=== PATIENT | male | born 1970 | race Caucasian/White ===

== ENCOUNTER 2024-06-04 13:29 | Emergency (ER) | payer OTHER, SELFPAY ==
[2024-06-04 13:36] VITALS: BP 136/84
[2024-06-04 13:44] VITALS: BMI 30.4
[2024-06-04 13:48] LABS: Glucose - Point of Care 89 mg/dl (70-99)
--- NOTE | 2024-06-04 13:54 | CON.NEURO ---
Neuro Assessment/Plan
Assessment
Abrupt onset left arm sensory change
Differential diagnosis includes left C7 radiculopathy referred pain from cardiac discomfort
Plan
Supportive care
Consider MRI of brain
Consider MRI of cervical spine
Antiplatelet agents at this time are not warranted
Will follow as needed
Consultation
Order
Date of Consultation: 06/04/24
Requesting Provider: Emergency department provider
Reason for Consult: Stroke alert
Subjective/Objective
Subjective Data
Date of Service: June 04, 2024
Right handed.
Patient reportedly was in his usual state of health when he developed sudden onset of left arm heaviness. The patient became concerned as this symptom could represent myocardial infarction and therefore he presented to this hospital's emergency
department at which time a stroke alert was initiated. The patient has not had prior episodes similar. He is not aware of factors which are improving or worsening this problem.
No other associated symptoms.
Objective Data
Vital Signs
Temp Pulse Resp BP Pulse Ox
36.9 C 68 18 136/84 97
06/04/24 13:36 06/04/24 13:36 06/04/24 13:36 06/04/24 13:36 06/04/24 13:36
Patient Allergies
apple Allergy (Verified 06/04/24 13:35)
Tongue Swelling
CVA Assessment
Onset of Stroke Symptoms
Onset of symptoms known: Yes
Date of onset of symptoms: 06/04/24
Time of onset of symptoms: 11:30
Time pt last seen normal is known: Yes
Date last time pt seen normal: 06/04/24
Time last time pt seen normal: 11:30
NIH Stroke Score
Level of Consciousness: 0 - Alert
LOC Questions: 0-Answers both correctly
LOC Commands: 0-Performs both correctly
Best Horizontal Gaze: 0-Normal
Visual Edlcid: 0=Normal, no visual loss
Facial Palsy: 0=Normal, symmetrical
Motor - Right Arm: 0=No drift 10 seconds
Motor - Left Arm: 0=No drift 10 seconds
Motor - Right Le-No drift 5 seconds
Motor - Left Le-No drift 5 seconds
Limb Ataxia: 0-Absent
Sensation: 0-Normal
Dysarthria: 0-Normal
Extinction and Inattention: 0-No abnormality
Tenecteplase Contraindications
Inclusion and Exclusion criteria reviewed: Yes
IAT Contraindications: NIHSS < 6
Review of Systems
-
History Source: Patient
All other systems: Reviewed and negative
EENT: Negative Decreased Vision or Swallowing Difficulty
Respiratory: Negative Trouble Breathing
Cardiac: Negative Chest Pain
Abdomen/GI: Negative Incontinence of Stool
Genitourinary: Negative Incontinence
Musculoskeletal: Negative Neck Pain
Neuro: Negative Dizzy or Headache
Physical Exam
-
General: No Apparent Distress and Appears Stated Age
Eyes: OU Absent Papilledema, Able to visualize OU, Round OU, [place] Conjunctivae and No Ptosis
HEENT: Anicteric and Moist Mucous Membranes
Neck: Full Range of Motion
Respiratory: No Dyspnea
Cardiac: No JVD
GI: Non-distended
Skin: Unremarkable
Extremities: No Clubbing, No Cyanosis and No Edema
Psych: Intact Judgement/Insight
Extended Neurological Exam
Mood & Affect: Mood Unremarkable and Affect Unremarkable
Attention Span & Concentration: Awake, Alert, Interactive and No Difficulty with 2 Step Request
Memory: Unremarkable
Tremor: Hand Tremor Absent and Head Tremor Absent
Speech: Quality Unremarkable and Quantity Unremarkable
Cranial Nerve II: Left Eye: Pupillary Reactivity Unremarkable, Pupillary Size Unremarkable and Visual Delcid Intact
Cranial Nerve II: Right Eye: Pupillary Reactivity Unremarkable, Pupillary Size Unremarkable and Visual Delcid Intact
Cranial Nerves III, IV, : Extraocular Movement: Extraocular Movement Full in all Directions and No Ptosis
Cranial Nerve VII: Facial Symmetry: Normal Facial Symmetry
Cranial Nerve VIII: Hearing: Unremarkable Hearing to Normal Conversational Volume
Cranial Nerves IX, X: Palate Movement: Palate Elevation Symmetric
Cranial Nerve XI: Shoulder Shrug: Unremarkable
Cranial Nerve XII: Tongue Protusion: Midline
Muscle Strength, Overall: Full Throughout
Muscle Bulk & Tone: Bulk Unremarkable and Tone Unremarkable
Pronator Drift: No Drift in Upper Extremities
Deep Tendon Reflexes: Unremarkable Throughout
Touch Sensation: Unremarkable
Coordination: [id number] Testing Unremarkable
Babinski Sign: Absent Bilaterally
Data Reviewed
-
CT Head: Report Reviewed and Image Reviewed
Labs: Report Reviewed
Reviewed with: Physician and Patient
Old Records: Summarized
Past History
Past History
ED Past Medical History: Hypercholesterolemia
ED Past Surgical History: None
Social History
Tobacco: Non-smoker
Alcohol: Occasional
Personal:
Living: with family
Employment: Employed
Family History
Family History: CAD
[2024-06-04 14:00] VITALS: BP 122/88
[2024-06-04 14:07] LABS: % Basophils 0.6 % (0-2); % Eosinophils 0.2 % (0-6); % Immature Granulocytes 0.1 % (0-0.5); % Lymphocytes 17.1 % (20.5-51.1); % Monocytes 6.6 % (1.7-9.3); % Neutrophils 75.4 % (42.2-75.2); Absolute Basophils 0.1 10^3/uL (0-0.2); Absolute Lymphocytes 1.4 10^3/uL (1.2-3.4); Absolute Monocytes 0.5 10^3/uL (0.1-0.6); Hematocrit 43.4 % (39.0-52.0); Hemoglobin 15.8 g/dL (13.0-18.0); Mean Corp Hgb Conc. 36.4 g/dL (33.0-37.0); Mean Corpuscular Hgb 31.3 pg (27.0-31.0); Mean Corpuscular Volume 85.9 fL (80.0-94.0); Mean Platelet Volume 10.3 fL (7.4-10.4); Nucleated Red Blood Cells % 0 % (-); Platelet Count 276 10^3/uL (130-400); Red Blood Cell Count 5.05 10^6/uL (4.70-6.10); Red Cell Dist. Width 11.7 % (11.5-14.5)
[2024-06-04 14:15] VITALS: BP 128/92
[2024-06-04 14:16] LABS: ALT (SGPT) 29 U/L (0-50); AST (SGOT) 24 U/L (17-59); Albumin 4.6 g/dl (3.5-5.0); Alkaline Phosphatase 75 U/L (38-126); Blood Urea Nitrogen 17 mg/dl (9-20); Calcium 9.9 mg/dl (8.4-10.2); Carbon Dioxide 27 mmol/L (22-30); Chloride 100 mmol/L (98-107); Estimated Creatinine Clearance 107 ml/min; Glucose 96 mg/dl (70-99); Potassium 3.9 mmol/L (3.5-5.1); Sodium 138 mmol/L (135-145); Total Bilirubin 1.6 mg/dl (0.2-1.3); Total Protein 7.4 g/dl (6.3-8.2); eGFR > 60.00
[2024-06-04 14:53] LABS: Troponin I < 0.012 ng/ml
[2024-06-04 15:00] VITALS: BP 117/86
--- NOTE | 2024-06-04 15:19 | ED.GENMED ---
History of Present Illness
General
Chief Complaint: Numbness
Source: patient
Exam Limitations: none
Time Seen by Provider: 06/04/24 13:42
History of Present Illness
History of Present Illness:
53-year-old male who presents because his left arm felt heavy while he was on a Zoom call for work. The patient states he just felt like he wanted to get checked out. Denies any chest pain. No shortness of breath. No lower extremity symptoms.
No facial symptoms. No speech changes. No headache. Patient admits that he has a history of hyperlipidemia but also that his father had a heart attack in his late 50s and he became concerned. Stroke alert was called from triage
Past History
Past History
ED Past Medical History: Hypercholesterolemia
ED Past Surgical History: None
Social History
Tobacco: Non-smoker
Alcohol: Occasional
Personal:
Living: with family
Employment: Employed
Family History
Family History: CAD
Phy Exam
Physical Exam
Physical Exam:
CONSTITUTIONAL Patient alert and oriented to person, place and time. Well-appearing. Vital signs reviewed.
HEAD atraumatic, normocephalic.
EYES eyelids normal to inspection, Extraocular muscles intact, Conjunctiva normal, Sclera normal.
NECK normal range of motion, Trachea midline, no jugular venous distention.
RESPIRATORY CHEST No respiratory distress noted, Chest expansion equal, Bilateral breath sounds clear.
CARDIOVASCULAR regular rate and rhythm, Heart sounds normal.
ABDOMEN abdomen nontender, Bowel sounds normal. No distention.
BACK normal inspection, no obvious deformities
UPPER EXTREMITY range of motion normal, Motor strength normal, no cyanosis, no edema.
LOWER EXTREMITY range of motion normal, Motor strength normal, no cyanosis, no edema.
NEURO Speech normal, No focal motor deficits, Mehreen coma scale 15, Memory normal, Cranial Nerves intact to screening exam. No pronator drift. Normal [id number]. Normal [id number]. Normal gross sensation to bilateral upper and lower
extremity
SKIN skin warm, dry, and normal in color.
Course
Orders/Labs/Results
Orders:
Orders
06/04/24 13:30
Electrocardiogram (*1) Urgent
Reason for Study: Chest Pain
EKG- Treatment ONCE
06/04/24 13:47
CT HEAD STROKE ALERT W/o Cont Urgent
Comment:
Reason For Exam: LUE heaviness
Cardiac Monitoring- Treatment ONCE
06/04/24 13:49
Complete Blood Count/With Diff Urgent
Comprehensive Metabolic Panel Urgent
Troponin I Urgent
06/04/24 15:50
Troponin I Urgent
Abnormal Lab Results
06/04/24
13:49
MCH 31.3 H pg
(27.0-31.0)
Neutrophils % 75.4 H %
(42.2-75.2)
Lymphocytes % 17.1 L %
(20.5-51.1)
Total Bilirubin 1.6 H mg/dl
(0.2-1.3)
06/04/24 13:49
06/04/24 13:49
Vital Signs
Initial and Last Documented VS:
Initial Vital Signs
Temp Pulse Resp BP Pulse Ox
98.4 F 66 18 136/84 97
06/04/24 13:36 06/04/24 13:36 06/04/24 13:36 06/04/24 13:36 06/04/24 13:36
Last Documented Vital Signs
Temp Pulse Resp BP Pulse Ox
98.4 F 75 16 117/86 95
06/04/24 13:36 06/04/24 15:00 06/04/24 15:00 06/04/24 15:00 06/04/24 15:00
MDM/Problems Addressed
Differential Diagnosis Includes:
CVA, TIA, ACS. Electrolyte imbalance
MDM/Problems Addressed:
Arm heaviness
*Radiology
Radiology exam reviewed: preliminary read by ED provider (No obvious intracranial hemorrhage) and radiology read reviewed
*Pulse Oximetry
Patient hypoxic: no
*EKG
Interpreted by ED Provider?: Yes
Interpretation: normal
Rate: bradycardiac
Rhythm: sinus
[place]: normal axis
QRS Pattern: normal QRS
Ischemia: no ischemia
*Senior Financial Reporting Analyst Interpretation
Rate: bradycardiac
Interpretation: normal
Rhythm: sinus
*Critical Care Note
Total Time (30-74mins, 75-104mins- exclusive of procedures): 30 minutes
Data Reviewed
Source: patient
Prescriptions/Medications Considered But Not Given:
Consider tPA but no focal deficits and NIH stroke score is 0
Patient Management
Discussion with other providers: [facility]uler (Case discussed with neurology)
Escalation/DeEscalation of care consider admission/obs:
53-year-old male who comes in as a stroke alert from home. His exam is benign and CT negative. My suspicion for stroke or TIA is low. Patient is well-appearing. Troponin EKG normal. Will repeat troponin. Seen by neurology who feels comfortable
that the patient can go home from a neurological perspective. Patient agrees.
ED Attending Note
-
Portions of this chart may have been created with voice recognition software.� Occasional wrong word or��sound alike� substitutions may have occurred due to the inherent limitations of voice recognition software.
Discharge Plan
Departure
Patient Disposition: Home (Routine Discharge)
Date of Disposition: 06/04/24
Time of Disposition: 15:30
Patient with high blood pressure during this ER visit?: No
Discharge Problem:
Heaviness of upper extremity
Referrals:
DEE RAMOS CRNP [Family Provider] -
Activity Restrictions/Additional Instructions:
Return immediately for chest pain, shortness of breath, motor weakness, headache, vision changes, facial asymmetry, or any other concerns. Please see your doctor in the next 3 to 5 days for follow-up and reevaluation
Interventions
Interventions:
*Risk Screen - Suicide Last Done: 06/04/24 13:36
*General Assessment Last Done: 06/04/24 13:47
*Neglect/Abuse Screening Last Done: 06/04/24 13:36
ED- Neurological Assessment Last Done: 06/04/24 14:02
Discharge Date and Time
Print Language: MAORI
[2024-06-04 16:00] VITALS: BP 126/84
[2024-06-04 16:23] LABS: Troponin I < 0.012 ng/ml
== END 2024-06-04 16:35 | disposition home or self-care (01) ==
LOC: EMR 13:29
PROVIDERS: EMERGENCY PHYSICIAN Emergency Medicine; FAMILY PHYSICIAN Nurse Practitioner Gerontology; OTHER PHYSICIAN Psychiatry & Neurology Neurology
DX: R20.0 Anesthesia of skin (principal); M79.602 Pain in left arm; E78.00 Pure hypercholesterolemia, unspecified
CPT/HCPCS: 99291; 70450; 80053; 82962; 84484; 85025; 93005